=== PATIENT | female | born 1955 | race African-American/Black ===

== ENCOUNTER 2017-08-02 08:20 | Emergency (ER) | payer MEDICAID, OTHER ==
[~2017-08-02] VITALS: Ht 154.9 cm; Wt 54.4 kg
[2017-08-02] MEDS ORDERED: HYDROCHLOROTH12.5 M2 ORAL (09:00)
[2017-08-02] MEDS ORDERED: HYDROCODON-ACE1 EA13 ORAL (09:00)
[2017-08-02] MEDS ORDERED: LOSARTAN POTASS25 MG ORAL (09:00)
[2017-08-02] MEDS ORDERED: Muscle relaxer (09:00)
[2017-08-02] MEDS ORDERED: Ketorolac 60mg Inj IM ONE (09:00)
--- NOTE | 2017-08-02 09:42 | Emergency Room Report ---
History of Present Illness General Chief Complaint: Neck Pain Source: Patient Present Illness HPI This patient states that 3 days ago she woke up with left-sided neck pain. She states the pain is worse with movement. She states that she gets in specific positions the pain will become very sharp it radiates down her left arm. She believes that she slept on it and has a muscle spasm. She does have a history of osteoarthritis and an old injury of her cervical spine. She denies recent trauma. She denies recent illness. She denies sore throat. She denies cough or congestion. She denies fever or chills. She denies headache. She denies nausea or vomiting. She denies vision changes. She has no other complaints. Allergies: Coded Allergies: No Known Allergies (Unverified , 08/02/17) Patient History Past Medical History: HTN, COPD, other - Osteoporosis Social History: Reports: smoking, Denies: alcohol use, drug use Reviewed Nursing Documentation: PMH: Agreed, PSxH: Agreed Nursing Documentation-PMH Hx Hypertension: Yes Hx COPD: Yes Review of Systems All Other Systems: negative except mentioned in HPI Physical Exam Vital Signs Date Time Temp Pulse Resp B/P (MAP) Pulse Ox O2 Delivery O2 Flow Rate FiO2 08/02/17 08:23 97.5 83 18 134/73 98 Room Air Sp02 EP Interpretation: reviewed, normal General Appearance: no apparent distress, alert, GCS 15, non-toxic Head: normocephalic, atraumatic Eyes: bilateral eye normal inspection, bilateral eye PERRL ENT: hearing grossly normal, normal pharynx, no angioedema, normal voice Neck: full range of motion, supple/symm/no masses, tender lateral - Exquistely TTP over the L. trapezius m. throughout. Respiratory: no respiratory distress, no retraction, no accessory muscle use, speaking full sentences Cardiovascular #1: regular rate, rhythm, no edema Gastrointestinal: normal bowel sounds, non tender, soft, non-distended, no guarding, no rebound Rectal: deferred Musculoskeletal: back normal, gait/station normal, normal range of motion, non- tender Neurologic: alert, oriented x3, responsive, motor strength/tone normal, sensory intact, speech normal Psychiatric: judgement/insight normal, memory normal, mood/affect normal, no suicidal/homicidal ideation Skin: normal color, no rash, warm/dry, well hydrated Medical Decision Making Diagnostic Impression: Primary Impression: Neck pain Additional Impression: Muscle spasm ER Course This patient has a clinical presentation consistent with muscle spasm. There are no red flags on physical exam or history that would make me concerned for underlying fracture. Therefore, I do not feel that I need to obtain imaging studies. The patient has pain with range of motion and has tenderness to palpation along the muscle. There is no evidence of compartment syndrome. There is no neurologic deficit. The patient was instructed on supportive home measures. No emergency medical condition was identified. I did give the patient Toradol IM. The patient declined Valium and Flexeril orally. The patient has medications at home. The patient was given return precautions and followup instructions. Last Vital Signs Date Time Temp Pulse Resp B/P (MAP) Pulse Ox O2 Delivery O2 Flow Rate FiO2 08/02/17 08:23 97.5 83 18 134/73 98 Room Air Status: improved Disposition: HOME, SELF-CARE Condition: Improved Referrals: [facility],REFERRING (PCP) Patient Instructions: NECK PAIN, No Trauma NIA CHRISTIE D.O. Aug 02, 2017 09:42
[2017-08-02] MEDS: Cyclobenzaprine 10mg Tab ORAL ONE ×2 (09:55→09:56)
[2017-08-02 09:57] VITALS: BP 134/73
[2017-08-02 10:01] VITALS: BP 134/73
== END 2017-08-02 10:03 | disposition home or self-care (01) ==
LOC: EMR 09:00
DX: M54.2 Cervicalgia (principal); M62.838 Other muscle spasm; I10 Essential (primary) hypertension; J44.9 Chronic obstructive pulmonary disease, unspecified; M81.0 Age-related osteoporosis without current pathological fracture
CPT/HCPCS: 96372; 99284